=== PATIENT | female | born 1990 | race Caucasian/White ===

== ENCOUNTER 2020-11-22 10:49 | Emergency (ER) | payer OTHER ==
[~2020-11-22] VITALS: Ht 170.2 cm; Wt 108.9 kg
[2020-11-22] MEDS ORDERED: CLONAZEPAM0.125 MG PO (10:56)
[2020-11-22 13:16] VITALS: BP 125/74
== END 2020-11-22 13:17 | disposition left against medical advice (07) ==
LOC: M.ERS 10:49
DX: F41.9 Anxiety disorder, unspecified (principal); Z53.21 Procedure and treatment not carried out due to patient leaving prior to being seen by health care provider